=== PATIENT | female | born 1965 | race Caucasian/White ===

== ENCOUNTER 2017-04-11 13:06 | Emergency (ER) | payer OTHER ==
[2017-04-11] MEDS ORDERED: ALBUTEROL NEB SOL 2.5MG/3ML 1 VIAL SOL ONE (13:07)
[2017-04-11] MEDS ORDERED: PREDNISONE 20 MG TAB ONE (13:13)
[2017-04-11] MEDS ORDERED: PREDNISONE 20 MG TAB PO ONE (13:13)
[2017-04-11] MEDS ORDERED: ALBUTEROL/IPRATROPIUM 1 VIAL SOL ONE ×3 (13:13→15:15)
[2017-04-11] MEDS ORDERED: ALBUTEROL NEB SOL 2.5MG/3ML 1 VIAL SOL NEB ONE (13:29)
[2017-04-11] MEDS ORDERED: ALBUTEROL/IPRATROPIUM 1 VIAL SOL INH ONE ×3 (13:29→15:15)
[2017-04-11 14:10] VITALS: TEMP 97.2
[2017-04-11 14:32] VITALS: BP 117/87
[2017-04-11 15:59] VITALS: PULSE 110; RESP 22; O2SAT 95
== END 2017-04-11 15:45 | disposition home or self-care (01) ==
LOC: ED 13:06
DX: J45.901 Unspecified asthma with (acute) exacerbation (principal)
CPT/HCPCS: 71020; 99284; J7603; J7620

== ENCOUNTER 2018-03-07 13:00 | Outpatient (CLI) | payer OTHER ==
[2017-04-11 15:59] VITALS: O2SAT 95
== END 2018-03-07 13:01 | disposition home or self-care (01) | DRG 556 ==
LOC: CONVCARE 13:00
PROVIDERS: ATTEND Orthopaedic Surgery
DX: M25.562 Pain in left knee (principal)

== ENCOUNTER → 2018-03-14 | Day surgery (SDC) | payer OTHER ==
[~2018-03-14] MED LIST: ACETAMINOPHEN 1,000 MG/100 ML VIAL IV ONE; BUPIVACAINE/EPI 0.5% 10 ML SOL INFIL ONE; CLINDAMYCIN 150 MG/ML SOL ONE; DEXAMETHASONE SOD PHOS PF 10 MG/ML SOL IJ ONE; FENTANYL 100MCG/2ML SOL ONE; KETOROLAC TROMETHAMINE 30 MG/ML SOL ONE; LEVOFLOXACIN 25 MG/ML SOL IV ONE; METOCLOPRAMIDE HYDROCHLORIDE 5 MG/ML SOL ONE; MIDAZOLAM 2 MG/2 ML SOL ONE; ONDANSETRON HCL 4 MG/2 ML SOL ONE; PROPOFOL 500 MG/50 ML EMU IV ONE
[2018-03-14] MEDS: HYDROMORPHONE 1 MG/ML SYRINGE ONE ×2 (11:10→11:35)
[2018-03-14 12:09] VITALS: RESP 20; TEMP 97.5; O2SAT 97
[2018-03-14 12:10] VITALS: BP 141/87; PULSE 97
== END | disposition home or self-care (01) | DRG 950 ==
LOC: SURG 08:02
PROVIDERS: ATTEND Orthopaedic Surgery
DX: S83.242D Other tear of medial meniscus, current injury, left knee, subsequent encounter (principal); S83.32XD Tear of articular cartilage of left knee, current, subsequent encounter
CPT/HCPCS: 99070; J1885; J1956; J2250; J2405; J2765; J3010; J3490; J0131; J1100; J1170; J2704

== ENCOUNTER 2018-05-25 18:18 | Inpatient (IN) | payer OTHER ==
[2018-05-25 18:58] LABS: HEMATOCRIT 50 % (35-47); HEMOGLOBIN 15.8 gm/dl (12.0-15.5); MEAN CORPUSCULAR HEMOGLOBIN 31.3 pg (27.0-32.0); MEAN CORPUSCULAR HGB CONC 31.9 gm/dl (32.0-36.0); MEAN CORPUSCULAR VOLUME 98 fL (81-99)
[2018-05-25 19:05] LABS: INR 0.94 (0.86-1.12)
[2018-05-25 19:13] LABS: ALBUMIN 3.4 gm/dl (3.4-5.0); ALKALINE PHOSPHATASE 120 IU/L (46-116); ALT 31 IU/L (14-63); AST 46 IU/L (15-37); BILIRUBIN,TOTAL 0.4 mg/dl (0.2-1.0); BLOOD UREA NITROGEN 12 mg/dl (7-18); CALCIUM 8.8 mg/dl (8.5-10.1); CARBON DIOXIDE 26.7 mEq/L (21-32); CHLORIDE 101 mMol/L (98-107); CREATININE 1.02 mg/dl (0.60-1.00); GLUCOSE 113 mg/dl (74-106); POTASSIUM 3.8 mMol/L (3.5-5.1); SODIUM 141 mMol/L (136-145); TOTAL PROTEIN 7.4 gm/dl (6.4-8.2); TROP I < 0.017 ng/ml (0.000-0.056)
[2018-05-25 19:16] LABS: BAND NEUTROPHILS % (MANUAL) 19 %; BASOPHILS % (MANUAL) 1 % (0-3); EOSINOPHILS % (MANUAL) 1 % (0-9); LYMPHOCYTES % (MANUAL) 8 % (10-50); MONOCYTES % (MANUAL) 5 % (0-12); NEUTROPHILS % (MANUAL) 66 % (37-80); NORMAL RBCS PRESENT
[2018-05-25] MEDS: ENOXAPARIN 100 MG SOL SC SCH (22:11)
[2018-05-25] MEDS: SODIUM CHLORIDE 0.9% 1000ML 1,000 ML IV SCH (22:12)
[2018-05-26] MEDS: GUAIFENESIN 200 MG/10 ML SOL PO PRN ×4 (04:25→17:06)
[2018-05-26] MEDS: SODIUM CHLORIDE 0.9% 1000ML 1,000 ML IV SCH ×2 (04:25→11:41)
[2018-05-26 07:21] LABS: CALCIUM 8.1 mg/dl (8.5-10.1); CARBON DIOXIDE 29.1 mEq/L (21-32); CREATININE 0.91 mg/dl (0.60-1.00); POTASSIUM 3.7 mMol/L (3.5-5.1)
[2018-05-26] MEDS: ENOXAPARIN 100 MG SOL SC SCH (09:24)
[2018-05-26] MEDS ORDERED: IBUPROFEN 600 MG TAB PO PRN (12:43)
[2018-05-26] MEDS ORDERED: BENZONATATE 200 MG SGL PO PRN (13:15)
[2018-05-26 17:10] VITALS: BP 131/87; PULSE 114; RESP 18; TEMP 98; O2SAT 97
== END 2018-05-26 19:00 | disposition home or self-care (01) | DRG 201 ==
LOC: ED 18:18 → ACUTE CARE 21:25
PROVIDERS: ADMIT Family Medicine; ATTEND Family Medicine
DX: R00.0 Tachycardia, unspecified (principal); J40 Bronchitis, not specified as acute or chronic; M79.605 Pain in left leg; R06.02 Shortness of breath; R05 Cough
CPT/HCPCS: 36415; 71275; 80048; 80053; 84484; 85007; 85027; 85378; 85610; 93012; 99222; 99284; J1650; Q9967; A9270-GY